=== PATIENT | male | born 1975 | race Caucasian/White ===

== ENCOUNTER 2023-08-27 15:53 | Outpatient (CLI) | payer MEDICAID | END 2023-08-27 23:59 | disposition home or self-care (01) | LOC: MRI 15:53 | PROVIDERS: ATTEND Nurse Practitioner Primary Care | DX: M75.101 Unspecified rotator cuff tear or rupture of right shoulder, not specified as traumatic (principal); M25.511 Pain in right shoulder | CPT/HCPCS: 73221 ==